=== PATIENT | female | born 1955 | race Caucasian/White ===

== ENCOUNTER 2018-02-08 16:05 | Emergency (ER) | payer MEDICARE, OTHER ==
[~2018-02-08] VITALS: Ht 157.5 cm; Wt 80.0 kg
[2018-02-08] MEDS ORDERED: normal saline 1000ML IV soln IVB ONE (16:25)
[2018-02-08 16:45] LABS: BASOPHILS % (AUTO) 0.6 % (0-1); EOSINOPHILS # (AUTO) 0.1 X10'3 (0-0.9); EOSINOPHILS % (AUTO) 1.6 % (0-6); HEMATOCRIT 39.6 % (35.0-45.0); HEMOGLOBIN 13.1 g/dl (12.0-16.0); LYMPHOCYTES # (AUTO) 1.9 X10'3 (1.1-4.8); LYMPHOCYTES % (AUTO) 40.2 % (21-51); MEAN CORPUSCULAR HEMOGLOBIN 30.2 PG (27.0-31.0); MEAN CORPUSCULAR VOLUME 91.6 FL (78-98); MONOCYTES # (AUTO) 0.3 X10'3 (0-0.9); MONOCYTES % (AUTO) 6.9 % (2-12); NEUTROPHILS # (AUTO) 2.4 X10'3 (1.8-7.7); NEUTROPHILS % (AUTO) 50.7 % (42-75); PLATELET COUNT 232 X10'3 (140-440); RED BLOOD COUNT 4.32 X10'6 (4.20-5.60); RED CELL DISTRIBUTION WIDTH 15.7 % (11.5-14.5); WHITE BLOOD COUNT 4.7 X10'3 (4.5-11.0)
[2018-02-08 17:02] LABS: ALANINE AMINOTRANSFERASE 30 U/L (12-78); ALBUMIN 3.3 G/DL (3.4-5.0); ALBUMIN/GLOBULIN RATIO 0.9 (1.1-1.5); ALKALINE PHOSPHATASE 153 IU/L (46-116); ANION GAP 5 (8-16); ASPARTATE AMINO TRANSFERASE 18 U/L (10-37); BILIRUBIN,TOTAL 0.2 MG/DL (0.1-1.0); BLOOD UREA NITROGEN 21 MG/DL (7-18); BUN/CREATININE RATIO 37.5 (6.6-38.0); CALCIUM 8.5 MG/DL (8.5-10.1); CHLORIDE 101 MMOL/L (99-107); CREATININE 0.56 MG/DL (0.40-0.90); GLUCOSE 83 MG/DL (70-104); LIPASE 130 U/L (73-393); POTASSIUM 4.5 MMOL/L (3.5-5.1); SODIUM 136 MMOL/L (135-145); TOTAL CARBON DIOXIDE 30.4 MMOL/L (24-32); eGFR > 90 ML/MIN
[2018-02-08] MEDS ORDERED: iohexol 300mg/ml 100ml inj. ONE (17:19)
[2018-02-08 19:01] LABS: CLARITY,URINE CLOUDY (Clear); COLOR,URINE YELLOW (Yellow); GLUCOSE, URINE NEGATIVE (Neg); KETONES,URINE NEGATIVE (Neg); LEUKOCYTE ESTERASE ,URINE SMALL (Neg); NITRITES, URINE NEGATIVE (Neg); OCCULT BLOOD,URINE LARGE (Neg); PROTEIN,URINE NEGATIVE (Neg); UROBILINOGEN,URINE 0.2 E.U/dL (0.2-1.0)
[2018-02-08 19:02] LABS: UA COLLECTION TYPE STRAIGHT CATH
[2018-02-08 19:10] LABS: RBC,URINE 20-50 /HPF (0-2); WBC,URINE 20-30 /HPF (0-4)
[2018-02-08 19:11] LABS: BACTERIA,URINE 4+ /HPF (Neg); MUCUS STRANDS NONE SEEN /LPF (Neg); SQUAMOUS EPITHELIAL CELL,UR FEW /LPF (FEW); WBC CLUMPS,URINE MODERATE /HPF (NEGATIVE)
[2018-02-08 19:13] VITALS: BP 141/87
[2018-02-08] MEDS ORDERED: methylnaltrexone br 12mg/0.6ml inj***SubQ only SQ ONE (19:20)
[2018-02-08] MEDS ORDERED: BISA10SU60 RC (19:22)
[2018-02-08] MEDS ORDERED: POLY17PO10 PO (19:22)
[2018-02-08] MEDS ORDERED: NITR100C6 PO (19:37)
== END 2018-02-08 19:55 | disposition home or self-care (01) ==
LOC: ER 16:06
DX: K59.00 Constipation, unspecified (principal); N39.0 Urinary tract infection, site not specified; R10.84 Generalized abdominal pain; J45.909 Unspecified asthma, uncomplicated; E11.9 Type 2 diabetes mellitus without complications; G89.29 Other chronic pain; G80.8 Other cerebral palsy; Z85.3 Personal history of malignant neoplasm of breast; Z90.49 Acquired absence of other specified parts of digestive tract; Z98.890 Other specified postprocedural states; Z88.0 Allergy status to penicillin; Z88.1 Allergy status to other antibiotic agents; Z79.899 Other long term (current) drug therapy
CPT/HCPCS: 36415; 71045; 74177; 80053; 81001; 83690; 85025; 87077; 87088; 87186; 96372; 99285; P9612; Q9967

== ENCOUNTER 2018-03-12 00:59 | Emergency (ER) | payer MEDICARE, OTHER ==
[~2018-03-12] VITALS: Ht 172.7 cm; Wt 101.4 kg
[~2018-03-12 00:59] MED LIST: BISA10SU60 RC; NITR100C6 PO
[2018-03-12 02:09] LABS: ALANINE AMINOTRANSFERASE 27 U/L (12-78); ALBUMIN/GLOBULIN RATIO 0.9 (1.1-1.5); ALKALINE PHOSPHATASE 122 IU/L (46-116); ANION GAP 7 (8-16); ASPARTATE AMINO TRANSFERASE 17 U/L (10-37); BILIRUBIN,TOTAL 0.2 MG/DL (0.1-1.0); BLOOD UREA NITROGEN 23 MG/DL (7-18); BUN/CREATININE RATIO 37.1 (6.6-38.0); CALCIUM 8.7 MG/DL (8.5-10.1); CHLORIDE 104 MMOL/L (99-107); CREATININE 0.62 MG/DL (0.40-0.90); GLUCOSE 130 MG/DL (70-104); SODIUM 139 MMOL/L (135-145); TOTAL CARBON DIOXIDE 28.5 MMOL/L (24-32); TOTAL PROTEIN 6.4 G/DL (6.4-8.2); eGFR > 90 ML/MIN
[2018-03-12 02:18] LABS: ETHANOL < 0.010 GM/DL (0.0-0.010); TROPONIN I < 0.04 NG/ML (0.0-0.05)
[2018-03-12 02:19] LABS: BASOPHILS % (AUTO) 0.8 % (0-1); EOSINOPHILS # (AUTO) 0.1 X10'3 (0-0.9); EOSINOPHILS % (AUTO) 2.2 % (0-6); HEMATOCRIT 36.5 % (35.0-45.0); HEMOGLOBIN 12.7 g/dl (12.0-16.0); LYMPHOCYTES # (AUTO) 1.9 X10'3 (1.1-4.8); LYMPHOCYTES % (AUTO) 32.5 % (21-51); MEAN CORPUSCULAR HEMOGLOBIN 31.7 PG (27.0-31.0); MEAN CORPUSCULAR HGB CONC 34.7 % (33.0-36.5); MEAN CORPUSCULAR VOLUME 91.4 FL (78-98); MEAN PLATELET VOLUME 9.6 FL (7.4-10.4); MONOCYTES # (AUTO) 0.4 X10'3 (0-0.9); MONOCYTES % (AUTO) 6.2 % (2-12); NEUTROPHILS # (AUTO) 3.3 X10'3 (1.8-7.7); NEUTROPHILS % (AUTO) 58.3 % (42-75); PLATELET COUNT 196 X10'3 (140-440); RED BLOOD COUNT 3.99 X10'6 (4.20-5.60); WHITE BLOOD COUNT 5.7 X10'3 (4.5-11.0)
[2018-03-12] MEDS ORDERED: POLY17PO10 PO (02:28)
[2018-03-12] MEDS ORDERED: HC A30CR2 RC (02:28)
[2018-03-12] MEDS ORDERED: PRAZ1CAP5 PO (02:28)
[2018-03-12] MEDS ORDERED: ACET-895 PO (02:28)
[2018-03-12] MEDS ORDERED: PHEN64.8 PO (02:28)
[2018-03-12] MEDS ORDERED: CLON-528 PO ×2 (02:28)
[2018-03-12] MEDS ORDERED: ALB0.5UD IH (02:28)
[2018-03-12] MEDS ORDERED: ALBU6.7H INH (02:28)
[2018-03-12] MEDS ORDERED: ALBU18HF2 INH (02:28)
[2018-03-12] MEDS ORDERED: SENN-161 PO (02:28)
[2018-03-12] MEDS ORDERED: POTA20PA40 PO (02:28)
[2018-03-12] MEDS ORDERED: PHEN64.8 (02:28)
[2018-03-12] MEDS ORDERED: LISI-600 PO (02:50)
[2018-03-12] MEDS ORDERED: ATOR40TA3 PO (02:50)
[2018-03-12] MEDS ORDERED: FERR325T28 PO (02:50)
[2018-03-12] MEDS ORDERED: ARIP400S3 IM (02:50)
[2018-03-12] MEDS ORDERED: BACI1PAC7 TOP (02:50)
[2018-03-12] MEDS ORDERED: FURO-150 PO (02:50)
[2018-03-12] MEDS ORDERED: CARB200T PO ×2 (02:50)
[2018-03-12] MEDS ORDERED: ASPI-611 PO (02:50)
[2018-03-12] MEDS ORDERED: LURA40TA3 PO (02:50)
[2018-03-12] MEDS ORDERED: GABA-532 PO (02:50)
[2018-03-12] MEDS ORDERED: FLUO20CA39 PO (02:50)
[2018-03-12] MEDS ORDERED: DEXT1CAP3 PO (02:50)
[2018-03-12] MEDS ORDERED: OMEP40CA37 PO (02:50)
[2018-03-12] MEDS ORDERED: ALEN70TA48 PO (02:50)
[2018-03-12] MEDS ORDERED: CALC-627 PO (02:50)
[2018-03-12 04:29] LABS: MAGNESIUM 1.7 MG/DL (1.5-2.4)
[2018-03-12 04:33] LABS: CARBAMAZEPINE (TEGRETOL) 7.6 UG/ML (4.0-12.0)
[2018-03-12 04:54] LABS: URINE HCG NEGATIVE (NEG)
[2018-03-12 05:06] LABS: URINE AMPHETAMINE SCREEN NEGATIVE (Neg); URINE BARBITUATE SCREEN POSITIVE (Neg); URINE BENZODIAZEPINES SCREEN NEGATIVE (Neg); URINE CANNABINOID SCREEN NEGATIVE (Neg); URINE COCAINE SCREEN NEGATIVE (Neg); URINE METHADONE SCREEN NEGATIVE (Neg); URINE OPIATE SCREEN NEGATIVE (Neg); URINE PHENCYCLIDINE SCREEN NEGATIVE (Neg)
[2018-03-12] MEDS ORDERED: non-formulary drug (Alendronate Sodium* (Fosamax*) 1 TABLET) PO SCH (05:10)
[2018-03-12] MEDS ORDERED: HYDROCORTISONE RC PRN (05:10)
[2018-03-12] MEDS ORDERED: sennosides 8.6mg tablet PO PRN (05:10)
[2018-03-12] MEDS ORDERED: ALBUTEROL SULFATE INH PRN (05:10)
[2018-03-12] MEDS ORDERED: non-formulary drug (Albuterol Sulfate (Ventolin Hfa) 2 PUFFS) INH PRN (05:10)
[2018-03-12] MEDS ORDERED: bacitracin ointment unit dose packet TP ONE (05:10)
[2018-03-12] MEDS ORDERED: albuterol 2.5 mg/0.5ml nebule NEB PRN (05:10)
[2018-03-12] MEDS ORDERED: clonazePAM 0.5mg tablet PO PRN (05:10)
[2018-03-12] MEDS ORDERED: [UNRECOGNIZED DRUG - OTHER] RC PRN (05:10)
[2018-03-12] MEDS ORDERED: PRAMOXINE RC PRN (05:10)
[2018-03-12] MEDS ORDERED: carBAMazepine 100mg chewable tablet PO SCH (05:10)
[2018-03-12 05:13] LABS: CLARITY,URINE SLIGHTLY CLOUDY (Clear); COLOR,URINE YELLOW (Yellow); GLUCOSE, URINE NEGATIVE (Neg); KETONES,URINE TRACE mg/dl (Neg); LEUKOCYTE ESTERASE ,URINE MODERATE (Neg); NITRITES, URINE NEGATIVE (Neg); OCCULT BLOOD,URINE NEGATIVE (Neg); PROTEIN,URINE NEGATIVE (Neg)
[2018-03-12 05:17] LABS: UA COLLECTION TYPE STRAIGHT CATH
[2018-03-12 05:20] LABS: BACTERIA,URINE 4+ /HPF (Neg); MUCUS STRANDS NONE SEEN /LPF (Neg); RBC,URINE NONE SEEN /HPF (0-2); SQUAMOUS EPITHELIAL CELL,UR MANY /LPF (FEW); WBC,URINE 20-30 /HPF (0-4)
[2018-03-12] MEDS ORDERED: albuterol 2.5 MG/3 ML nebule NEB PRN (05:26)
[2018-03-12] MEDS ORDERED: ARIPIPRAZOLE 400 MG IM SCH (08:00)
[2018-03-12] MEDS ORDERED: DEXTROMETHORPHAN PO SCH (08:00)
[2018-03-12] MEDS ORDERED: QUINIDINE PO SCH (08:00)
[2018-03-12] MEDS: aspirin 81mg tab.chew PO SCH (08:19)
[2018-03-12] MEDS: pantoprazole 40mg Tablet.DR PO SCH (08:19)
[2018-03-12] MEDS: ferrous sulfate 325mg tablet PO SCH (08:19)
[2018-03-12] MEDS: lurasidone 20mg tablet PO SCH ×2 (08:19→16:52)
[2018-03-12] MEDS: furosemide 20MG tablet PO SCH ×2 (08:19→20:00)
[2018-03-12] MEDS: gabapentin 300mg capsule PO SCH ×2 (08:19→20:00)
[2018-03-12] MEDS: FLUoxetine 20mg capsule PO SCH (08:20)
[2018-03-12] MEDS: phenobarbital 30mg tablet PO SCH ×2 (08:20→20:24)
[2018-03-12] MEDS: potassium Cl oral solution 20 MEQ/15 ML PO SCH (08:20)
[2018-03-12] MEDS: carBAMazepine 100mg chewable tablet PO SCH ×2 (08:20→21:00)
[2018-03-12] MEDS: polyethylene glycol 3350 17gm powd pack PO SCH (08:23)
[2018-03-12] MEDS: lisinopril 20mg tablet PO SCH (08:23)
[2018-03-12] MEDS: acetaminophen 325mg tablet PO PRN ×2 (11:11→17:56)
[2018-03-12] MEDS: clonazePAM 0.5mg tablet PO PRN (16:52)
[2018-03-12] MEDS: prazosin 1mg capsule PO SCH (20:18)
[2018-03-12] MEDS: atorvastatin 20mg tablet PO SCH (21:00)
[2018-03-13] MEDS: lurasidone 20mg tablet PO SCH ×2 (07:52→18:00)
[2018-03-13] MEDS: pantoprazole 40mg Tablet.DR PO SCH (07:53)
[2018-03-13] MEDS: ferrous sulfate 325mg tablet PO SCH (07:53)
[2018-03-13] MEDS: aspirin 81mg tab.chew PO SCH (07:53)
[2018-03-13] MEDS: furosemide 20MG tablet PO SCH ×2 (07:54→20:59)
[2018-03-13] MEDS: gabapentin 300mg capsule PO SCH ×2 (07:54→20:59)
[2018-03-13] MEDS: potassium Cl oral solution 20 MEQ/15 ML PO SCH (07:55)
[2018-03-13] MEDS: phenobarbital 30mg tablet PO SCH ×2 (07:55→20:59)
[2018-03-13] MEDS: carBAMazepine 100mg chewable tablet PO SCH ×2 (07:56→21:00)
[2018-03-13] MEDS: FLUoxetine 20mg capsule PO SCH (07:56)
[2018-03-13] MEDS: lisinopril 20mg tablet PO SCH (08:00)
[2018-03-13] MEDS: polyethylene glycol 3350 17gm powd pack PO SCH (08:02)
[2018-03-13] MEDS: clonazePAM 0.5mg tablet PO PRN (15:27)
[2018-03-13] MEDS: atorvastatin 20mg tablet PO SCH (20:59)
[2018-03-13] MEDS: prazosin 1mg capsule PO SCH (21:00)
[2018-03-14] MEDS: lurasidone 20mg tablet PO SCH ×2 (07:28→17:19)
[2018-03-14] MEDS: pantoprazole 40mg Tablet.DR PO SCH (07:28)
[2018-03-14] MEDS: gabapentin 300mg capsule PO SCH ×2 (07:31→20:17)
[2018-03-14] MEDS: lisinopril 20mg tablet PO SCH (08:00)
[2018-03-14] MEDS: furosemide 20MG tablet PO SCH ×2 (08:25→20:00)
[2018-03-14] MEDS: phenobarbital 30mg tablet PO SCH ×2 (08:26→20:17)
[2018-03-14] MEDS: polyethylene glycol 3350 17gm powd pack PO SCH (08:26)
[2018-03-14] MEDS: FLUoxetine 20mg capsule PO SCH (08:26)
[2018-03-14] MEDS: aspirin 81mg tab.chew PO SCH (08:26)
[2018-03-14] MEDS: potassium Cl oral solution 20 MEQ/15 ML PO SCH (08:26)
[2018-03-14] MEDS: ferrous sulfate 325mg tablet PO SCH (08:26)
[2018-03-14] MEDS: carBAMazepine 100mg chewable tablet PO SCH ×2 (08:52→20:18)
[2018-03-14] MEDS: acetaminophen 325mg tablet PO PRN (14:05)
[2018-03-14] MEDS: clonazePAM 0.5mg tablet PO PRN (18:39)
[2018-03-14] MEDS: prazosin 1mg capsule PO SCH (20:10)
[2018-03-14] MEDS: atorvastatin 20mg tablet PO SCH (20:17)
[2018-03-15] MEDS ORDERED: nitrofuran/nitrofuran macrocrysal 100 MG capsule PO SCH (07:43)
[2018-03-15] MEDS: furosemide 20MG tablet PO SCH (08:00)
[2018-03-15] MEDS: lisinopril 20mg tablet PO SCH (08:00)
[2018-03-15] MEDS: lurasidone 20mg tablet PO SCH (08:10)
[2018-03-15] MEDS: aspirin 81mg tab.chew PO SCH (08:10)
[2018-03-15] MEDS: potassium Cl oral solution 20 MEQ/15 ML PO SCH (08:10)
[2018-03-15] MEDS: polyethylene glycol 3350 17gm powd pack PO SCH (08:10)
[2018-03-15] MEDS: gabapentin 300mg capsule PO SCH (08:11)
[2018-03-15] MEDS: FLUoxetine 20mg capsule PO SCH (08:11)
[2018-03-15] MEDS: ferrous sulfate 325mg tablet PO SCH (08:11)
[2018-03-15] MEDS: phenobarbital 30mg tablet PO SCH (08:11)
[2018-03-15] MEDS: pantoprazole 40mg Tablet.DR PO SCH (08:11)
[2018-03-15] MEDS: carBAMazepine 100mg chewable tablet PO SCH (08:13)
[2018-03-15] MEDS ORDERED: NITR100C6 PO (11:15)
[2018-03-15 12:52] VITALS: BP 96/56
== END 2018-03-15 12:56 | disposition home or self-care (01) ==
LOC: ER 01:00
DX: R45.851 Suicidal ideations (principal); J45.909 Unspecified asthma, uncomplicated; E11.9 Type 2 diabetes mellitus without complications; G89.29 Other chronic pain; F03.90 Unspecified dementia, unspecified severity, without behavioral disturbance, psychotic disturbance, mood disturbance, and anxiety; Z90.49 Acquired absence of other specified parts of digestive tract; Z85.3 Personal history of malignant neoplasm of breast; Z79.899 Other long term (current) drug therapy; Z88.0 Allergy status to penicillin; Z88.1 Allergy status to other antibiotic agents; Z88.8 Allergy status to other drugs, medicaments and biological substances; Z79.82 Long term (current) use of aspirin; Z91.5 Personal history of self-harm
CPT/HCPCS: 36415; 80053; 80156; 80305; 80320; 81001; 81025; 83735; 84443; 84484; 85025; 87077; 87088; 87186; 94760; 99285; P9612; J7611

== ENCOUNTER 2018-03-26 10:13 | Emergency (ER) | payer MEDICARE, OTHER ==
[~2018-03-26] VITALS: Ht 157.5 cm; Wt 71.8 kg
[~2018-03-26 10:13] MED LIST changes: +ACET-895 PO; +ALB0.5UD IH; +ALBU18HF2 INH; +ALBU6.7H INH; +ALEN70TA48 PO; +ARIP400S3 IM; +ASPI-611 PO; +ATOR40TA3 PO; +BACI1PAC7 TOP; -BISA10SU60 RC; +CALC-627 PO; +CARB200T PO; +CLON-528 PO; +DEXT1CAP3 PO; +FERR325T28 PO; +FLUO20CA39 PO; +FURO-150 PO; +GABA-532 PO; +HC A30CR2 RC; +LISI-600 PO; +LURA40TA3 PO; +OMEP40CA37 PO; +PHEN64.8; +PHEN64.8 PO; +POLY17PO10 PO; +POTA20PA40 PO; +PRAZ1CAP5 PO; +SENN-161 PO
[2018-03-26 11:07] LABS: BASOPHILS % (AUTO) 0.6 % (0-1); EOSINOPHILS # (AUTO) 0.1 X10'3 (0-0.9); EOSINOPHILS % (AUTO) 2.6 % (0-6); HEMATOCRIT 38.1 % (35.0-45.0); HEMOGLOBIN 12.4 g/dl (12.0-16.0); LYMPHOCYTES # (AUTO) 1.8 X10'3 (1.1-4.8); LYMPHOCYTES % (AUTO) 38.7 % (21-51); MEAN CORPUSCULAR HEMOGLOBIN 30.1 PG (27.0-31.0); MEAN CORPUSCULAR HGB CONC 32.5 % (33.0-36.5); MEAN CORPUSCULAR VOLUME 92.6 FL (78-98); MEAN PLATELET VOLUME 8.8 FL (7.4-10.4); MONOCYTES # (AUTO) 0.4 X10'3 (0-0.9); MONOCYTES % (AUTO) 7.8 % (2-12); NEUTROPHILS # (AUTO) 2.3 X10'3 (1.8-7.7); NEUTROPHILS % (AUTO) 50.3 % (42-75); PLATELET COUNT 222 X10'3 (140-440); RED BLOOD COUNT 4.11 X10'6 (4.20-5.60); RED CELL DISTRIBUTION WIDTH 14.7 % (11.5-14.5); WHITE BLOOD COUNT 4.5 X10'3 (4.5-11.0)
[2018-03-26 11:22] LABS: ALANINE AMINOTRANSFERASE 24 U/L (12-78); ALBUMIN 2.9 G/DL (3.4-5.0); ALBUMIN/GLOBULIN RATIO 0.8 (1.1-1.5); ALKALINE PHOSPHATASE 137 IU/L (46-116); ANION GAP 6 (8-16); ASPARTATE AMINO TRANSFERASE 17 U/L (10-37); BILIRUBIN,TOTAL 0.1 MG/DL (0.1-1.0); BLOOD UREA NITROGEN 22 MG/DL (7-18); BUN/CREATININE RATIO 35.5 (6.6-38.0); CALCIUM 8.4 MG/DL (8.5-10.1); CHLORIDE 105 MMOL/L (99-107); CREATININE 0.62 MG/DL (0.40-0.90); ETHANOL < 0.010 GM/DL (0.0-0.010); GLUCOSE 104 MG/DL (70-104); SODIUM 140 MMOL/L (135-145); TOTAL CARBON DIOXIDE 28.6 MMOL/L (24-32); TOTAL PROTEIN 6.5 G/DL (6.4-8.2); eGFR > 90 ML/MIN
[2018-03-26] MEDS ORDERED: ACET500C5 PO (12:37)
[2018-03-26] MEDS ORDERED: HC A30CR2 RC (12:37)
[2018-03-26] MEDS ORDERED: DULR RC (12:37)
[2018-03-26] MEDS ORDERED: FLUT1DIS7 INH (12:37)
[2018-03-26] MEDS ORDERED: FLUO40CA10 PO (12:37)
[2018-03-26] MEDS ORDERED: ACET-812 PO (12:43)
[2018-03-26] MEDS ORDERED: PRAZ1CAP5 PO (12:52)
[2018-03-26 16:07] LABS: URINE HCG NEGATIVE (NEG)
[2018-03-26 16:16] LABS: URINE AMPHETAMINE SCREEN NEGATIVE (Neg); URINE BARBITUATE SCREEN POSITIVE (Neg); URINE BENZODIAZEPINES SCREEN NEGATIVE (Neg); URINE CANNABINOID SCREEN NEGATIVE (Neg); URINE COCAINE SCREEN NEGATIVE (Neg); URINE METHADONE SCREEN NEGATIVE (Neg); URINE OPIATE SCREEN NEGATIVE (Neg); URINE PHENCYCLIDINE SCREEN NEGATIVE (Neg)
[2018-03-26 18:24] VITALS: BP 143/75
== END 2018-03-26 23:00 | disposition home or self-care (01) ==
LOC: ER 10:14
DX: R45.851 Suicidal ideations (principal); J45.909 Unspecified asthma, uncomplicated; E11.9 Type 2 diabetes mellitus without complications; G89.29 Other chronic pain; Z90.49 Acquired absence of other specified parts of digestive tract; Z85.3 Personal history of malignant neoplasm of breast; Z88.0 Allergy status to penicillin; Z88.1 Allergy status to other antibiotic agents; Z79.82 Long term (current) use of aspirin; Z79.899 Other long term (current) drug therapy
CPT/HCPCS: 36415; 80053; 80305; 80320; 81025; 85025; 99285

== ENCOUNTER 2018-05-04 16:43 | Emergency (ER) | payer MEDICARE, OTHER ==
[~2018-05-04] VITALS: Ht 157.5 cm; Wt 78.0 kg
[~2018-05-04 16:43] MED LIST changes: +ACET-812 PO; -ACET-895 PO; -ALBU6.7H INH; -ALEN70TA48 PO; +ALEN70TA60 PO; -BACI1PAC7 TOP; +DULR RC; -FLUO20CA39 PO; +FLUO40CA10 PO; +FLUT1DIS7 INH; -FURO-150 PO; -NITR100C6 PO; -POTA20PA40 PO; -SENN-161 PO; +SENN-162 PO
[2018-05-04] MEDS ORDERED: morphine 4 MG/ML inj SYRINge IV ONE (17:35)
[2018-05-04 18:27] LABS: BASOPHILS % (AUTO) 0.2 % (0-1); EOSINOPHILS # (AUTO) 0.1 X10'3 (0-0.9); EOSINOPHILS % (AUTO) 0.8 % (0-6); HEMATOCRIT 42.2 % (35.0-45.0); HEMOGLOBIN 13.7 g/dl (12.0-16.0); LYMPHOCYTES % (AUTO) 21.5 % (21-51); MEAN CORPUSCULAR HEMOGLOBIN 30.1 PG (27.0-31.0); MEAN CORPUSCULAR HGB CONC 32.5 % (33.0-36.5); MEAN CORPUSCULAR VOLUME 92.5 FL (78-98); MEAN PLATELET VOLUME 9.1 FL (7.4-10.4); MONOCYTES # (AUTO) 0.3 X10'3 (0-0.9); MONOCYTES % (AUTO) 2.9 % (2-12); NEUTROPHILS # (AUTO) 7.1 X10'3 (1.8-7.7); NEUTROPHILS % (AUTO) 74.6 % (42-75); PLATELET COUNT 212 X10'3 (140-440); RED BLOOD COUNT 4.56 X10'6 (4.20-5.60); RED CELL DISTRIBUTION WIDTH 13.6 % (11.5-14.5); WHITE BLOOD COUNT 9.5 X10'3 (4.5-11.0)
[2018-05-04 18:46] LABS: ALANINE AMINOTRANSFERASE 34 U/L (12-78); ALBUMIN 3.3 G/DL (3.4-5.0); ALBUMIN/GLOBULIN RATIO 0.9 (1.1-1.5); ALKALINE PHOSPHATASE 114 IU/L (46-116); ANION GAP 12 (8-16); ASPARTATE AMINO TRANSFERASE 21 U/L (10-37); BILIRUBIN,TOTAL 0.2 MG/DL (0.1-1.0); BLOOD UREA NITROGEN 28 MG/DL (7-18); CALCIUM 8.9 MG/DL (8.5-10.1); CHLORIDE 103 MMOL/L (99-107); CREATININE 0.56 MG/DL (0.40-0.90); GLUCOSE 103 MG/DL (70-104); POTASSIUM 4.2 MMOL/L (3.5-5.1); SODIUM 141 MMOL/L (135-145); TOTAL CARBON DIOXIDE 26.5 MMOL/L (24-32); TOTAL PROTEIN 6.8 G/DL (6.4-8.2); eGFR > 90 ML/MIN
[2018-05-04 19:03] LABS: PROTHROMBIN TIME 9.9 SECONDS (9.0-12.0)
[2018-05-04 19:04] LABS: PARTIAL THROMBOPLASTIN TIME 28 SECONDS (22-32)
[2018-05-04 19:40] VITALS: BP 108/71
--- NOTE | 2018-05-04 22:32 | NUR ---
[facility] UNABLE TO TRANSPORT PT. [facility] NOT RUNNING TONIGHT. LOOKING INTO ALTERNATIVE PLANS
--- NOTE | 2018-05-04 22:34 | NUR ---
TRIED CALLING [facility]ED [facility]IVING: [facility] [address] NO ANSWER FROM [facility] Saturday @ 8A
== END 2018-05-04 23:31 | disposition home or self-care (01) ==
LOC: ER 16:44
DX: M85.812 Other specified disorders of bone density and structure, left shoulder (principal); M85.88 Other specified disorders of bone density and structure, other site; G80.9 Cerebral palsy, unspecified; M54.2 Cervicalgia; J45.909 Unspecified asthma, uncomplicated; E11.9 Type 2 diabetes mellitus without complications; G89.29 Other chronic pain; Z90.49 Acquired absence of other specified parts of digestive tract; Z79.82 Long term (current) use of aspirin; Z88.1 Allergy status to other antibiotic agents; Z88.0 Allergy status to penicillin; Z88.8 Allergy status to other drugs, medicaments and biological substances; W05.0XXA Fall from non-moving wheelchair, initial encounter; Y93.89 Activity, other specified; Y92.89 Other specified places as the place of occurrence of the external cause; Y99.8 Other external cause status
CPT/HCPCS: 36415; 70450; 72125; 72170; 73000; 73030; 80053; 85025; 85610; 85730; 99284

== ENCOUNTER 2019-08-09 10:38 | Emergency (ER) | payer MEDICARE, MEDICAID ==
[~2019-08-09] VITALS: Ht 157.5 cm; Wt 82.7 kg
[~2019-08-09 10:38] MED LIST changes: -ATOR40TA3 PO; +ATOR40TA7 PO; +OMEP40CA13 PO; -OMEP40CA37 PO; -SENN-162 PO; +SENN-263 PO
[2019-08-09 10:43] VITALS: BP 122/87
--- NOTE | 2019-08-09 11:15 | NUR ---
Damaged end of tube cut off and adapter inserted into newly cut portion. Push/pull resulted gastric contents and tube flushed without difficulty.
--- NOTE | 2019-08-09 11:31 | NUR ---
Soike with Ashlee RN @ [facility] re: pt. Per Ashlee, pt has been puling on pegtube trying to dislocate/remove it in an effort to be moved from current facility to another as "she doesn't want to live here anymore." Pt Ashlee, pt has dx of schizophrenia and often refuses medication. She expressed appreciation when POC including Ativan IM was shared. Ashlee will oyster picker pt when ready for dc. Primary RN Kisha and EDMD Alvarado updated.
[2019-08-09] MEDS ORDERED: LORazepam 2 mg/ml vial IV ONE (11:35)
--- NOTE | 2019-08-09 11:40 | NUR ---
Pt refused ativan after finding out she did not need to stay in the hospital. Pt also began trying to pull out her tube. One had restrained to keep her from pulling at the tube until caregiver arrived.
== END 2019-08-09 12:06 | disposition home or self-care (01) ==
LOC: ER 10:39
DX: K94.23 Gastrostomy malfunction (principal); J45.909 Unspecified asthma, uncomplicated; E11.9 Type 2 diabetes mellitus without complications; G89.29 Other chronic pain; Z90.49 Acquired absence of other specified parts of digestive tract; Z98.890 Other specified postprocedural states; Z85.3 Personal history of malignant neoplasm of breast; Z88.0 Allergy status to penicillin; Z88.1 Allergy status to other antibiotic agents; Z79.82 Long term (current) use of aspirin; Z79.899 Other long term (current) drug therapy; Y83.9 Surgical procedure, unspecified as the cause of abnormal reaction of the patient, or of later complication, without mention of misadventure at the time of the procedure
CPT/HCPCS: 43762; 99284

== ENCOUNTER 2019-08-26 21:52 | Emergency (ER) | payer MEDICARE, MEDICAID ==
[~2019-08-26] VITALS: Ht 157.5 cm; Wt 86.4 kg
--- NOTE | 2019-08-26 22:18 | NUR ---
[facility] [phone] boarding house manager at [facility]
--- NOTE | 2019-08-26 23:08 | NUR ---
all scans came back negative, spoke to healthcare customer service [facility] about sending pt back to facility, per healthcare customer service pt has delusions about men in black clothes coming into her room this is normal behaviro for pt. Pt stated that she did want to go back to facility because she was "scared of men in black hurting her". provider made aware, every time I go into room and tell pt that shes going home she comes up with another symptom to try to stay in the hospital
--- NOTE | 2019-08-26 23:17 | NUR ---
facility uses [facility] for transport, we will call them to get a transport for patient
[2019-08-26] MEDS ORDERED: LORazepam 1 MG tablet PO ONE (23:25)
[2019-08-26] MEDS ORDERED: LORazepam 2 mg/ml vial IM ONE (23:35)
--- NOTE | 2019-08-26 23:50 | NUR ---
PT IS ACTING OUT SINCE WE SAID SHE WAS GOING BACK HOME, SHE IS HITTING HER RIGHT ARM AGAINST THE RAILING, YELLING OUT, SEIZURE PADS WERE PLACED SO PT WONT INJURE HERSELF. PT IS NEXT TO NURSES STATION IN [facility].
--- NOTE | 2019-08-27 00:05 | NUR ---
CALLED [facility]ARE [facility] THEY WILL BE HER IN 5 MIN PER STAFF
[2019-08-27 00:32] VITALS: BP 122/72
== END 2019-08-27 00:35 | disposition home or self-care (01) ==
LOC: ER 21:52
DX: S00.03XA Contusion of scalp, initial encounter (principal); J45.909 Unspecified asthma, uncomplicated; E11.9 Type 2 diabetes mellitus without complications; G89.29 Other chronic pain; Z90.49 Acquired absence of other specified parts of digestive tract; Z98.890 Other specified postprocedural states; Z88.0 Allergy status to penicillin; Z88.8 Allergy status to other drugs, medicaments and biological substances; Z79.82 Long term (current) use of aspirin; Z79.899 Other long term (current) drug therapy; W19.XXXA Unspecified fall, initial encounter; Y93.89 Activity, other specified; Y92.89 Other specified places as the place of occurrence of the external cause; Y99.8 Other external cause status
CPT/HCPCS: 70450; 71045; 72125; 96372; 99285; J2060

== ENCOUNTER 2019-09-09 21:45 | Emergency (ER) | payer MEDICARE, MEDICAID ==
[~2019-09-09] VITALS: Ht 157.5 cm; Wt 94.0 kg
[2019-09-09] MEDS ORDERED: normal saline 1000ML IV soln IVB ONE (22:00)
[2019-09-09] MEDS ORDERED: ondansetron/PF 4mg/2ml inj IV ONE (22:00)
[2019-09-09 22:24] LABS: ALANINE AMINOTRANSFERASE 25 U/L (12-78); ALBUMIN 3.3 G/DL (3.4-5.0); ALBUMIN/GLOBULIN RATIO 0.8 (1.1-1.5); ALKALINE PHOSPHATASE 134 IU/L (46-116); ANION GAP 11 (8-16); ASPARTATE AMINO TRANSFERASE 36 U/L (10-37); BILIRUBIN,TOTAL 0.2 MG/DL (0.1-1.0); BLOOD UREA NITROGEN 24 MG/DL (7-18); BUN/CREATININE RATIO 27.9 (6.6-38.0); CHLORIDE 104 MMOL/L (99-107); CREATININE 0.86 MG/DL (0.40-0.90); GLUCOSE 130 MG/DL (70-104); LIPASE 150 U/L (73-393); POTASSIUM 4.1 MMOL/L (3.5-5.1); SODIUM 141 MMOL/L (135-145); TOTAL CARBON DIOXIDE 26.3 MMOL/L (24-32); TOTAL PROTEIN 7.3 G/DL (6.4-8.2); eGFR 67 ML/MIN
[2019-09-09 22:51] LABS: HEMOGLOBIN 11.4 g/dl (12.0-16.0)
[2019-09-09 22:53] LABS: BASOPHILS # (AUTO) 0.1 X10'3 (0-0.2); BASOPHILS % (AUTO) 0.7 % (0-1); EOSINOPHILS # (AUTO) 0.1 X10'3 (0-0.9); HEMATOCRIT 34.2 % (35.0-45.0); LYMPHOCYTES # (AUTO) 1.3 X10'3 (1.1-4.8); LYMPHOCYTES % (AUTO) 12.2 % (21-51); MEAN CORPUSCULAR HEMOGLOBIN 30.5 PG (27.0-31.0); MEAN CORPUSCULAR HGB CONC 33.2 g/dL (33.0-36.5); MEAN PLATELET VOLUME 9.1 FL (7.4-10.4); MONOCYTES # (AUTO) 0.5 X10'3 (0-0.9); MONOCYTES % (AUTO) 4.8 % (2-12); NEUTROPHILS # (AUTO) 8.6 X10'3 (1.8-7.7); NEUTROPHILS % (AUTO) 81.3 % (42-75); PLATELET COUNT 238 X10'3 (140-440); RED BLOOD COUNT 3.72 X10'6 (4.20-5.60); RED CELL DISTRIBUTION WIDTH 14.3 % (11.5-14.5); WHITE BLOOD COUNT 10.6 X10'3 (4.5-11.0)
[2019-09-09 23:57] LABS: CLARITY,URINE SLIGHTLY CLOUDY (Clear); COLOR,URINE YELLOW (Yellow); GLUCOSE, URINE NEGATIVE (Neg); KETONES,URINE NEGATIVE (Neg); LEUKOCYTE ESTERASE ,URINE SMALL (Neg); NITRITES, URINE NEGATIVE (Neg); OCCULT BLOOD,URINE MODERATE (Neg); PROTEIN,URINE NEGATIVE (Neg); UROBILINOGEN,URINE 0.2 E.U/dL (0.2-1.0)
[2019-09-10 00:17] LABS: UA COLLECTION TYPE STRAIGHT CATH
[2019-09-10 00:18] LABS: WBC,URINE 0-4 /HPF (0-4)
[2019-09-10 00:19] LABS: BACTERIA,URINE 4+ /HPF (Neg); RBC,URINE 0-2 /HPF (0-2); SQUAMOUS EPITHELIAL CELL,UR FEW /LPF (FEW)
--- NOTE | 2019-09-10 01:14 | NUR ---
PATIENTS [facility] PROVIDES TRANSPORTATION. THE NURSE IS ON THEIR WAY TO PICK HER UP
--- NOTE | 2019-09-10 02:19 | NUR ---
RAFFAELE [phone] CALL WHEN PT IS READY FOR TRANSPORT
--- NOTE | 2019-09-10 03:08 | NUR ---
PT'S NURSE RAFFAELE CALLED AND SAID PATIENT WILL BE GETTING TRANSPORTATION FROM [facility] WHEN PT IS DISCHARGED
--- NOTE | 2019-09-10 03:54 | NUR ---
SPOKE WITH BANG [facility] WILL BE PICKING PATIENT UP FROM HERE AT 5 AM
[2019-09-10 06:21] VITALS: BP 159/85
== END 2019-09-10 06:23 | disposition home or self-care (01) ==
LOC: ER 21:45
DX: S00.12XA Contusion of left eyelid and periocular area, initial encounter (principal); R11.2 Nausea with vomiting, unspecified; J45.909 Unspecified asthma, uncomplicated; E11.9 Type 2 diabetes mellitus without complications; G89.29 Other chronic pain; R10.30 Lower abdominal pain, unspecified; Z90.49 Acquired absence of other specified parts of digestive tract; Z98.890 Other specified postprocedural states; Z88.0 Allergy status to penicillin; Z88.8 Allergy status to other drugs, medicaments and biological substances; Z79.82 Long term (current) use of aspirin; Z79.899 Other long term (current) drug therapy; W05.0XXA Fall from non-moving wheelchair, initial encounter; Y93.89 Activity, other specified; Y92.89 Other specified places as the place of occurrence of the external cause; Y99.8 Other external cause status
CPT/HCPCS: 36415; 71045; 74176; 80053; 81001; 83690; 85025; 87077; 87088; 96374; 99285; J2405; J7030; 81003

== ENCOUNTER 2020-08-19 10:38 | Emergency (ER) | payer MEDICARE, MEDICAID ==
[~2020-08-19] VITALS: Ht 157.5 cm; Wt 82.3 kg
[~2020-08-19 10:38] MED LIST changes: -LISI-600 PO; +LISI20TA28 PO
[2020-08-19 10:54] VITALS: BP 100/56
== END 2020-08-19 16:20 | disposition home or self-care (01) ==
LOC: ER 10:38
DX: M25.512 Pain in left shoulder (principal); G89.29 Other chronic pain; J45.909 Unspecified asthma, uncomplicated; E11.9 Type 2 diabetes mellitus without complications; Z85.3 Personal history of malignant neoplasm of breast; Z90.89 Acquired absence of other organs; Z90.49 Acquired absence of other specified parts of digestive tract; Z98.890 Other specified postprocedural states; Z88.0 Allergy status to penicillin; Z88.1 Allergy status to other antibiotic agents; Z88.8 Allergy status to other drugs, medicaments and biological substances; Z79.82 Long term (current) use of aspirin; Z79.899 Other long term (current) drug therapy
CPT/HCPCS: 73030; 99283